=== PATIENT | female | born 1980 | race Caucasian/White ===

== ENCOUNTER → 2017-07-19 | Outpatient (CLI) | payer OTHER ==
[~2017-07-19] MED LIST: ALBUAER2 INH; DRV100 PO; FLVHFA110 INH; FLX10 PO; TGRUNK PO; [UNRECOGNIZED DRUG - OTHER] PO
== END | disposition home or self-care (01) ==
LOC: C.LAB1850 15:27
PROVIDERS: ATTEND Obstetrics & Gynecology
DX: N91.2 Amenorrhea, unspecified (principal)

== ENCOUNTER → 2017-07-19 | Outpatient (CLI) | payer OTHER | END | disposition home or self-care (01) | LOC: C.PAPS 18:12 | PROVIDERS: ATTEND Obstetrics & Gynecology | DX: Z12.4 Encounter for screening for malignant neoplasm of cervix (principal) ==

== ENCOUNTER → 2017-10-02 | Outpatient (CLI) | payer OTHER | END | disposition home or self-care (01) | LOC: C.LABMFLN 11:57 | PROVIDERS: ATTEND Family Medicine | DX: O02.1 Missed abortion (principal) ==

== ENCOUNTER 2018-08-02 17:55 | Observation (INO) ==
--- NOTE | 2018-08-03 00:29 | Obstetrical Progress Note ---
Date of Service August 03, 2018 Assessment & Plan (1) 38 weeks gestation of : category one fetus. normal blood pressure. no evidence of pet (2) Uterine contractions: Patient was monitored for over 6 hours without cervical change. I will d/c home. I have explained to the patient that she is not in labor and I cannot keep her because I don't know when she will transition to labor--it could be 1 hour or days. She asks why I can't just break her water and I explained that I do not have a clinical indication to do so at 38 weeks. The patient's worst complaint is that she is hungry. The patient's family is very upset by this. They are screaming and yelling, using explicatives. "What happens if she delivers at home?" they ask. It is possible that could happen--as that could happen with any person. They note they are over an hour away. I noted that they did not have to go home, can stay overnight locally if concerned. If they do go home, if it gets really bad, they can stop at [facility] which they pass on their way here if need be. The patient seems ok with this decision, it is the family that are making all the ruckus. When I speak directly to her she verbalizes agreement with plan. THe family remains very upset, cussing, storming out. One even threatened to brandy. They aren't yelling at me, but berating the and the nurse in the room. I told the patient that she can call back at any time. she has a scheduled appt on in the office. Subjective Patient is a 38yowf with iup at 38 3/7 weeks who presents to labor and delivery with contractions. no lof/vb. +fm. has been essentially uncomplicated. She does have a remote hx of seizure d/o but is not on meds and no seizures documented in several years. she went to the office today and Dr. Quintero found the patient to be 6. She was advised to await for the contractions to be more painful and to come to labor and delivery. The patient apparently went home and then presented to labor and delivery at 1755. She notes back pain mostly with some in the front. the patient walked for over 6 hours. Review of Systems Review of Systems: All systems reviewed & are unremarkable except as noted in HPI & below Physical Exam Constitutional: WD/WN, vitals as above Gastrointestinal (Abdomen): soft, gravid, nt Genitourinary: cx--/-2 toco--irregularq2-5min efm-- Results & Data Vital Signs (Past 12 Hours) Vital Signs Temp Pulse Resp BP 08/02/18 23:20 81 115/73 08/02/18 23:10 36.8 C 85 18 132/78 08/02/18 22:42 78 117/80 08/02/18 22:36 36.5 C 18 08/02/18 19:30 88 130/81 08/02/18 18:08 93 H 131/86 08/02/18 18:06 37.1 C 93 H 18 131/86
--- NOTE | 2018-08-08 23:18 | Discharge Summary ---
ADMIT DIAGNOSES: 1. Intrauterine at 38 weeks. 2. Contractions. HISTORY OF PRESENT ILLNESS: The patient is a 38-year-old white female 7, para 2-0-4-2 with an intrauterine at 38 and 3/7 weeks who presented to labor and delivery with contractions. She notes no leakage of fluid or vaginal bleeding, good movement. has been essentially uncomplicated. She does have a remote history of seizure disorder, but is not on any medication and no seizures documented in several years. She had an OB appointment in the office today and Dr. Quintero found to be 6 and 90. She was advised to wait for contractions to be more painful and come to Labor And Delivery. The patient apparently went home and then presented to Labor And Delivery around 1755 hours. She notes back pain mostly with some discomfort in the front. PHYSICAL EXAMINATION: GENERAL: This is a well-developed, well-nourished white female in no acute distress. ABDOMEN: Soft, gravid and nontender. CERVIX: On admission was 5, 90, -2. Tocodynamometer shows her mc irregularly every 2-5 minutes. External monitor showed a category 1 strip reactive NST. ASSESSMENT: This is a at 38 weeks with a category 1 fetus, normal blood pressure and uterine contractions. She has advanced cervical dilation. HOSPITAL COURSE: The patient was observed for well over 6 hours and her cervix was checked multiple times and did not make any change. The fetus was category 1 throughout. I explained to the patient that she was 38 weeks and unless she showed a clinical indication for augmentation of labor with AROM that there was no indication for that at this time. There was no evidence of labor. There was no evidence of preeclampsia and actually the patient's worst complaint upon discharge was that she was hungry and I would not feed her. The patient lives 45+ minutes away and actually has to drive past [facility] on the way to our hospital. The patient and her significant other expressed understanding of the plan; however, her family was quite angry at this. They were yelling and screaming and using foul language with myself and the nurses. There was concern about delivery at home. We discussed that there was a possibility of a delivery at home for every obstetrical patient. I again explained to the patient and her significant other why I was not breaking her bag of water. Given that she is 38 weeks and there was no clinical indication to do so. I discussed that as soon as anything change she was welcome to call and come back. I discussed that if there was an emergency she could stop at [facility] on the way since a drive right past this. She has a scheduled appointment in the office on . Again, the patient and the father of the baby expressed understanding of the plan and were okay with discharge.
== END 2018-08-03 00:27 | disposition home or self-care (01) ==
LOC: INTOOBSV 17:55 → 4S1 17:55

== ENCOUNTER 2018-08-04 11:03 | Inpatient (IN) ==
[2018-08-04] MEDS ORDERED: OXYTOCIN 30 UNITS/500 ML BAG IV PRN ×2 (11:17→11:41)
[2018-08-04] MEDS ORDERED: LACTATED RINGER'S 1,000 ML IV PRN (11:17)
--- NOTE | 2018-08-04 11:20 | Procedure Note ---
Vaginal Delivery Summary Date of Service August 04, 2018 Patient presented to hospital this was her third baby group B strep negative at term she was fully dilated his membranes had ruptured she pushed over 1 contraction total delivered a baby in occiput anterior one loose nuchal cord easily passed over the head fluid was clear easy delivery with no excessive force live vigorous female infant cord clamped and cut cord gases obtained cord blood obtained placenta removed with traction IV Pitocin started small first- degree tear near the right side of the anterior vulva repaired with 3-0 Vicryl sponge and instrument counts correct estimated blood loss 200 mL
[2018-08-04] MEDS ORDERED: BENZOCAINE 20% AER SPR 82.5 GM CAN EXT PRN (11:41)
[2018-08-04] MEDS ORDERED: OXYCODONE/ACETAMINOPHEN 5mg/325mg TAB PO PRN (11:41)
[2018-08-04] MEDS ORDERED: ALBUTEROL HFA 8 GM INHALER INH PRN (11:41)
[2018-08-04] MEDS ORDERED: HYDROCORTISONE ACETATE 25 MG SUPP PR PRN (11:41)
[2018-08-04] MEDS ORDERED: BISACODYL 10 MG SUPP PR PRN (11:41)
[2018-08-04] MEDS ORDERED: DIPHTHERIA/TETANUS/PERTUSSIS 0.5 ML SYR/VIAL IM ONE (11:41)
[2018-08-04] MEDS ORDERED: Nursing to Pharmacy Communication ONE (11:51)
[2018-08-04] MEDS ORDERED: ACETAMINOPHEN 325 MG TAB ONE (11:54)
[2018-08-04 12:05] LABS: Base Excess Cord Arterial Bld -2.9 mEq/L (-9-1.8); CO2 Cord Arterial Blood 45 mmHg (39.1-73.5); HCO3 Cord Arterial Blood 23 mmol/L (19.7-28.5); pH Cord Arterial Blood 7.33 (7.1-7.38)
[2018-08-04 12:10] LABS: Base Excess Cord Venous Blood -3.1 mEq/L (-7.7-1.9); Cord Venous Blood HCO3 20 mmol/L (18.4-26.8); Cord Venous Blood PCO2 32 mmHg (30.4-57.2); Cord Venous Blood PO2 38 mmHg (14.1-43.3); Cord Venous Blood pH 7.42 (7.20-7.44)
[2018-08-04] MEDS: SUPERCREAM 0.870% 15 GM JAR EXT PRN ×2 (15:26→15:27)
[2018-08-04] MEDS: ACETAMINOPHEN 325 MG TAB PO PRN (18:45)
[2018-08-04] MEDS: DOCUSATE SODIUM 100 MG CAP PO SCH (20:19)
[2018-08-04] MEDS: FLUTICASONE HFA 110MCG INHALER INH SCH (20:22)
[2018-08-05] MEDS: ACETAMINOPHEN 325 MG TAB PO PRN ×2 (01:00→07:31)
[2018-08-05 06:52] LABS: Hemoglobin 11.1 g/dL (12.0-16.0); Mean Corpuscular Hgb Conc 35.8 g/dL (32-36); Mean Platelet Volume 10.6 fL (7.4-10.4); Platelet Count 206 K/uL (130-400); RDW Coefficient of Variation 13.6 % (11.5-14.5); RDW Standard Deviation 47.2 fL (36.4-46.3); Red Blood Count 3.23 M/uL (4.2-5.4); White Blood Count 13.08 K/uL (4.8-10.8)
--- NOTE | 2018-08-05 07:26 | Obstetrical Progress Note ---
Date of Service August 05, 2018 day #1 the patient is doing very well she is having minimal pain she is able to void well and she has no other concerns Assessment & Plan (1) 38 weeks gestation of : Patient wishes to go home later today discharge instructions reviewed Physical Exam Vital Signs (Past 24 Hours) Last Vital Signs Temp 36.9 C 08/05/18 03:50 Pulse 60 08/05/18 03:50 Resp 18 08/05/18 03:50 BP 130/82 08/05/18 03:50 Vital signs are stable she is afebrile uterus firm nontender extremity exam negative
[2018-08-05] MEDS: DOCUSATE SODIUM 100 MG CAP PO SCH (07:30)
[2018-08-05] MEDS: FLUTICASONE HFA 110MCG INHALER INH SCH (07:32)
[2018-08-05] MEDS ORDERED: PRENATAL VITAMIN 1 TAB PO SCH (09:00)
[2018-08-05] MEDS ORDERED: NON-FORMULARY MEDICATION (Pnv Cmb#95-Ferrous Fumarate-Fa [Prenatal] 1 TAB) PO SCH (09:00)
[2018-08-05] MEDS ORDERED: BISACODYL 5 MG TABEC PO SCH (20:00)
== END 2018-08-05 15:20 | disposition home or self-care (01) | DRG 807 ==
LOC: 4S1 11:03 → 4S2 14:30